=== PATIENT | male | born 1965 | race Caucasian/White ===

== ENCOUNTER 2021-01-19 23:16 | Emergency (ER) | payer OTHER ==
[2021-01-19] MEDS ORDERED: Lidocaine 1% 20 ML MDV ONE (23:58)
[2021-01-20] MEDS ORDERED: Mupirocin 2% Ointment 22 GM Tube ONE (02:10)
[2021-01-20] MEDS ORDERED: HYDROcodone/Acetaminophen 5/325 mg Tablet ONE (02:10)
== END 2021-01-20 02:25 | disposition home or self-care (01) ==
LOC: MADERS 23:16
DX: S01.312A Laceration without foreign body of left ear, initial encounter (principal); W01.0XXA Fall on same level from slipping, tripping and stumbling without subsequent striking against object, initial encounter
CPT/HCPCS: 12011